=== PATIENT | female | born 1960 | race Caucasian/White ===

== ENCOUNTER 2017-03-05 15:00 | Emergency (ER) | payer OTHER ==
[~2017-03-05] VITALS: Ht 160 cm; Wt 88.5 kg
[2017-03-05 15:07] VITALS: TEMP 36.7; Ht 160 cm; Wt 88.5 kg
[2017-03-05] MEDS ORDERED: ADAL40KI INJ (15:16)
[2017-03-05] MEDS ORDERED: MULT-506 PO (15:17)
--- NOTE | 2017-03-05 15:27 | EMERGENCY ROOM VISIT NOTE ---
History Report prepared by Umu: Avril Bob Under the Supervision of: Ekta FuentesO. 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 She notes the majority of her pain is in the back of her calf. She currently rates her pain a 4/10 in severity. She notes bilaterally leg swelling. She was advised to come to the ED by her PCP for possible DVT. She notes increased tiredness. She had a gastric bypass five years ago. Pt denies headache, change in vision, fevers, chest pain , shortness of breath, nausea, vomiting, diarrhea, pain with urination, trauma, and melena. Patient denies diabetes, hypertension, hyperlipidemia, CAD, history of sudden at a young age, and smoking. Patient denies recent trips, history of immobilization or recent surgery, prior history of DVT, hemoptysis, history of malignancy, history of smoking, or control/estrogen use. Source of History: patient Onset: one week SCREW MACHINE OPERATOR Position: leg (right) Symptom Intensity: 4/10 Quality: other (swelling) Timing: constant Associated Symptoms: No fevers, No headache, No chest pain, No SOB, No nausea, No vomiting, No melena, No diarrhea, No urinary symptoms Note: She notes increased tiredness and bilateral leg swelling. She denies any trauma or vision changes. Review of Systems See HPI for pertinent positives & negatives. A total of 10 systems reviewed and were otherwise negative. Past Medical & Surgical Surgical Problems: (1) H/O gastric bypass Family History No pertinent family history obtained. Social History Smoking Status: Never Smoker Smokeless Tobacco Use: No Alcohol Use: none Drug Use: none Housing Status: lives with family Current/Historical Medications Scheduled Adalimumab (Humira Pen), Unknown Dose INJ every other week Multivitamin (Multivitamin), 1 TAB PO DAILY Allergies Coded Allergies: Morphine (Verified Allergy, Unknown, 03/05/17) N/V Uncoded Allergies: BEETS (Allergy, Unknown, 04/20/02) CODEINE (Generic Allergy) (Allergy, Unknown, Y, 10/23/04) CODEINE, MS N/V (Allergy, Unknown, 04/20/02) MORPHINE (Allergy, Unknown, 10/23/04) Physical Exam Vital Signs Date Time Temp Pulse Resp B/P (MAP) Pulse Ox O2 Delivery O2 Flow Rate FiO2 03/05/17 18:12 75 20 133/72 98 03/05/17 17:11 88 20 136/98 95 Room Air 03/05/17 15:07 36.7 102 17 158/95 99 Room Air Physical Exam GENERAL: Sitting up in bed, alert, well appearing, well nourished, no distress, non-toxic. Well dressed. EYE EXAM: normal conjunctiva. OROPHARYNX: no exudate, no erythema, lips, buccal mucosa, and tongue normal and mucous membranes are moist NECK: supple, no nuchal rigidity, no adenopathy, non-tender LUNGS: Clear to auscultation. Normal chest wall mechanics HEART: no murmurs, S1 normal and S2 normal ABDOMEN: abdomen soft, non-tender, normo-active bowel sounds, no masses, no rebound or guarding. BACK: Back is symmetrical on inspection and there is no deformity, no midline tenderness, no CVA tenderness. SKIN: no rashes and no bruising UPPER EXTREMITIES: upper extremities are grossly normal. LOWER EXTREMITIES: Full active and passive ROM to right hip, knee, ankle, and EHL. DPs 2/4. Gross sensation intact. Right calf larger than left. NEURO EXAM: Normal sensorium, cranial nerves II-XII grossly intact, normal speech, no gross weakness of arms, no gross weakness of legs. Medical Decision & Procedures ER Provider Diagnostic Interpretation: Radiology results as stated below per my review and the radiologist's interpretation: R VENOUS DOPP LOWER EXT UNILAT CLINICAL HISTORY: 56 years-old Female presenting with rle swelling and pain . TECHNIQUE: Real-time grayscale and color and spectral Doppler ultrasound imaging of the veins of the right lower extremity was performed. Compression and augmentation were also utilized. COMPARISON: None. FINDINGS: Right: Common femoral vein: Patent. Greater saphenous vein: Patent. Deep femoral vein: Patent. Femoral vein: Patent. Popliteal vein: Patent. Calf veins: Patent. Other: At the site of clinical concern in the right posterior lateral calf, no sonographic abnormality. IMPRESSION: No evidence of deep venous thrombosis. Electronically signed by: Emilio Banuelos M.D. 03/05/2017 5:32 PM Dictated Date/Time: 03/05/2017 5:30 PM Laboratory Results 03/05/17 15:47 Red Blood Count 4.42, Mean Corpuscular Volume 86.7, Mean Corpuscular Hemoglobin 29.4, Mean Corpuscular Hemoglobin Concent 33.9, Mean Platelet Volume 8.7, Neutrophils (%) (Auto) 61.8, Lymphocytes (%) (Auto) 30.7, Monocytes (%) (Auto) 5.9, Eosinophils (%) (Auto) 0.7, Basophils (%) (Auto) 0.7, Neutrophils # (Auto) 3.38, Lymphocytes # (Auto) 1.68, Monocytes # (Auto) 0.32, Eosinophils # (Auto) 0.04, Basophils # (Auto) 0.04 03/05/17 15:47 Test 03/05/17 15:47 White Blood Count 5.47 K/uL (4.8-10.8) Red Blood Count 4.42 M/uL (4.2-5.4) Hemoglobin 13.0 g/dL (12.0-16.0) Hematocrit 38.3 % (37-47) Mean Corpuscular Volume 86.7 fL (80-100) Mean Corpuscular Hemoglobin 29.4 pg (25-34) Mean Corpuscular Hemoglobin Concent 33.9 g/dl (32-36) Platelet Count 365 K/uL (130-400) Mean Platelet Volume 8.7 fL (7.4-10.4) Neutrophils (%) (Auto) 61.8 % Lymphocytes (%) (Auto) 30.7 % Monocytes (%) (Auto) 5.9 % Eosinophils (%) (Auto) 0.7 % Basophils (%) (Auto) 0.7 % Neutrophils # (Auto) 3.38 K/uL (1.4-6.5) Lymphocytes # (Auto) 1.68 K/uL (1.2-3.4) Monocytes # (Auto) 0.32 K/uL (0.11-0.59) Eosinophils # (Auto) 0.04 K/uL (0-0.5) Basophils # (Auto) 0.04 K/uL (0-0.2) RDW Standard Deviation 43.9 fL (36.4-46.3) RDW Coefficient of Variation 13.9 % (11.5-14.5) Immature Granulocyte % (Auto) 0.2 % Immature Granulocyte # (Auto) 0.01 K/uL (0.00-0.02) Prothrombin Time 9.8 SECONDS (9.0-12.0) Prothromb Time International Ratio 0.9 (0.9-1.1) Anion Gap 8.0 mmol/L (3-11) Est Creatinine Clear Calc Drug Dose 81.9 ml/min Estimated GFR () 95.6 Estimated GFR (Non- 82.5 BUN/Creatinine Ratio 19.7 (10-20) Calcium Level 9.0 mg/dl (8.5-10.1) Laboratory results per my review. ED Course ED COURSE: Vital signs were reviewed and showed hypertensive. The patients medical record was reviewed The above diagnostic studies were performed and reviewed. ED treatments and interventions as stated above. 1513: The patient was evaluated in room B8. A complete history and physical examination was performed. 1548 I reassessed the patient at this time. She is resting comfortably. 1805: Upon reevaluation, the patient is resting comfortably. I discussed my findings with the patient and she understands and agrees with the treatment plan. Based on the patients age, coexisting illnesses, exam and lab findings the decision to treat as an outpatient was made. The patient remained stable while under my care. The patient appeared well at the time of discharge. Medical Decision Differential diagnosis: Etiologies such as DVT, musculoskeletal, infection, joint effusion, trauma, lymphedema, idiopathic, CHF, as well as others were entertained. Patient is a 48-year-old female who presents to ER complaining of right calf pain. This has been worsening over the past week. No trauma. She has no other complaints at this time. She is referred in by her PCP for a DVT study. CBC all BMP and INR was unremarkable. Duplex of the right lower extremity was unremarkable. She is completely neurovascularly intact. No signs of septic joint. She was updated bedside. Nothing to suggest a fracture. Majority of her pain is in her right calf. She was discharged follow-up with PCP. Discussed with Pt concerning signs and symptoms to watch out for. Pt was instructed to follow up with their PCP and discussed with the patient their option to return to the ED at anytime for persistent or worsening symptoms. The appropriate anticipatory guidance and out-patient management, including indications for return to the emergency department, were explained at length to the patient and understood. Medication Reconcilliation Current Medication List: was personally reviewed by me Blood Pressure Screening Patient's blood pressure: Elevated blood pressure Blood pressure disposition: Elevated BP felt to be situational Impression Primary Impression: Right calf pain Scribe Attestation The scribe's documentation has been prepared under my direction and personally reviewed by me in its entirety. I confirm that the note above accurately reflects all work, treatment, procedures, and medical decision making performed by me. Departure Information Dispostion Home / Self-Care Referrals Rosanna Santos M.D. (PCP) Forms HOME CARE DOCUMENTATION FORM, IMPORTANT VISIT INFORMATION Patient Instructions ED Leg Swelling Unilateral, My [facility] Additional Instructions Please follow up with your primary care doctor with in the next 24 hours. Any worsening of your symptoms, please return to the ED immediately. This includes any fevers greater than 100.4, worsening pain, chest pain, shortness breath, persistent nausea, vomiting, unable to eat or drink, or any other concerning signs or symptoms from your standpoint. Please take Tylenol or Motrin as needed for pain.
[2017-03-05 15:57] LABS: BASO % 0.7 %; BASO ABS # 0.04 K/uL (0-0.2); EOS % 0.7 %; EOS ABS # 0.04 K/uL (0-0.5); HEMATOCRIT 38.3 % (37-47); IG# 0.01 K/uL (0.00-0.02); LYMPH % 30.7 %; LYMPH ABS # 1.68 K/uL (1.2-3.4); MEAN CELL VOLUME 86.7 fL (80-100); MEAN CORPUSCULAR HEMOGLOBIN 29.4 pg (25-34); MEAN CORPUSCULAR HGB CONC 33.9 g/dl (32-36); MEAN PLATELET VOLUME 8.7 fL (7.4-10.4); MONO % 5.9 %; MONO ABS # 0.32 K/uL (0.11-0.59); NEUT % 61.8 %; NEUT ABS # 3.38 K/uL (1.4-6.5); PLATELET COUNT 365 K/uL (130-400); RED CELL DISTRIBUTION WIDTH CV 13.9 % (11.5-14.5); RED CELL DISTRIBUTION WIDTH SD 43.9 fL (36.4-46.3); WHITE BLOOD COUNT 5.47 K/uL (4.8-10.8)
[2017-03-05 16:07] LABS: INR 0.9 (0.9-1.1)
[2017-03-05 16:13] LABS: CREATININE 0.79 mg/dl (0.60-1.20); POTASSIUM 4.3 mmol/L (3.5-5.1)
--- NOTE | 2017-03-05 17:34 | DIAGNOSTIC IMAGING REPORT ---
R VENOUS DOPP LOWER EXT UNILAT CLINICAL HISTORY: 56 years-old Female presenting with rle swelling and pain . TECHNIQUE: Real-time grayscale and color and spectral Doppler ultrasound imaging of the veins of the right lower extremity was performed. Compression and augmentation were also utilized. COMPARISON: None. FINDINGS: Right: Common femoral vein: Patent. Greater saphenous vein: Patent. Deep femoral vein: Patent. Femoral vein: Patent. Popliteal vein: Patent. Calf veins: Patent. Other: At the site of clinical concern in the right posterior lateral calf, no sonographic abnormality. IMPRESSION: No evidence of deep venous thrombosis. Electronically signed by: Emilio Banuelos M.D. 03/05/2017 5:32 PM Dictated Date/Time: 03/05/2017 5:30 PM
[2017-03-05 18:12] VITALS: BP 133/72; PULSE 75; O2SAT 98
== END 2017-03-05 18:14 | disposition home or self-care (01) ==
LOC: C.EDB 15:03
DX: M79.661 Pain in right lower leg (principal); Z98.84 Bariatric surgery status

== ENCOUNTER 2018-06-08 05:01 | Inpatient (IN) ==
--- NOTE | 2018-05-12 14:49 | PAT Medication Instructions ---
Medication Instructions Date of Service May 12, 2018 Home Medications Ca carb-D3-mag gt-irq-wpzb-Zn 1 tab PO DAILY adalimumab [Humira Pen] 1 dose SUBCUT UD pediatric proouxfd-pnew-ffu 2 tab PO DAILY ranitidine HCl 150 mg PO DAILY PRN ASK your prescriber and surgeon adalimumab [Humira Pen] 1 dose SUBCUT UD DO NOT take the morning of surgery Ca carb-D3-mag ow-atg-utej-Zn 1 tab PO DAILY pediatric msrmeiju-jefx-oob 2 tab PO DAILY ranitidine HCl 150 mg PO DAILY PRN Other Notes If you have any questions please call us at [phone] or [phone] or [phone] or [phone]
--- NOTE | 2018-05-13 08:59 | History & Physical Report ---
Date of Service May 13, 2018 Date of Surgery: 06-08-18 Assessment & Plan (1) Tricompartment osteoarthritis of right knee: Risks and benefits of procedure discussed in detail today, patient would like to proceed with a right TKA @ [facility] as scheduled. will obtain medical clearance prior to surgery as well as obtain PATs at [facility]. She will discuss with her GI surgeon if ok take ASA 81mg po bid x 1 month post op or if they would prefer Lovenox has h/o gastric bypass, f/u 2 weeks post op for routine post- operative care and xray, sooner if having any problems. will make arrangements for HHPT at the time of discharge. History of Present Illness Chief Complaint: right knee pain Primary Care Provider: Rosanna Santos MD Ms Schultz is a 57 year old female who is here for a follow up of right knee pain, presents for pre-op evaluation prior to Right Total knee replacement. She presents with pain and swelling on the right side. Patient states that she has been using Pennsaid without any results. The symptoms occur intermittently. currently the patient states that the symptoms are moderate-severe. The pain is described as aching and sometimes sharp. The symptoms occur intermittently. The patient is experiencing pain in the following location: anterior aspect on the right side. She rates her current pain as 4/10, worst is 7/10. The symptoms are aggravated by daily activities and repetitive activities, walking and stairs. Daxa states that the symptoms are relieved by no specific activity. The patient has had a previous MRI. Pt. has used topical Pennsiad. Due to Gastic Bypass she is limited on oral NSAID's. Patient states that she is unable to take the prescribed Meloxicam due to having gastric bypass surgery. Allergies Allergy/AdvReac Type Severity Reaction Status Date / Time morphine Allergy Mild SICK TO Verified 05/06/18 10:58 STOMACH BEETS Allergy Mild Rash Uncoded 05/06/18 10:58 CODEINE (Generic Allergy) Allergy Mild SICK TO Uncoded 05/06/18 10:58 STOMACH Home Medications Home Medications Medication Instructions Recorded Confirmed Type Ca carb-D3-mag ir-lpf-lylh-Zn 1 tab PO DAILY 05/06/18 05/06/18 History [Caltrate + D3 Plus Minerals] adalimumab [Humira Pen] 1 dose SUBCUT UD 05/06/18 05/06/18 History pediatric ucxebxel-iqrj-bnd 2 tab PO DAILY 05/06/18 05/06/18 History [Flintstones Complete (iron)] ranitidine HCl 150 mg PO DAILY PRN 05/06/18 05/06/18 History Past Med/Surg History Medical History Anemia HX Colitis GERD (gastroesophageal reflux disease) Hypertension HX- NO MEDS Osteoarthritis Psoriasis Uterine fibroid HX Surgical History History of adenoidectomy History of cholecystectomy History of colonoscopy History of esophagogastroduodenoscopy (EGD) History of gastric bypass History of hysterectomy History of left knee surgery DEBRIDEMENT AND UNI-SPACER 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) History of tonsillectomy History of tooth extraction Nausea and vomiting after administration of anesthetic agent Family History Grandfather (Maternal) Family history of diabetes mellitus Grandfather (Paternal) Family history of diabetes mellitus Social History Preferred Language: Montserratian Communication Ability: Effective Operations Administrator Required: No Beliefs That Will Affect Care: None Current Living Situation: Spouse Other Information That Helps Us Care for You: No Feels Safe at Home: Yes Safety Concerns: Feels Safe At This Time Smoking Status: Never smoker Hx Alcohol Use: Yes Hx Substance Use: No Review of Systems All systems reviewed & are unremarkable except as noted in HPI & below Constitutional: no fever, no chills and no sweats Respiratory: no cough and no dyspnea Cardiovascular: no chest pain, no dyspnea and no orthopnea Gastrointestinal: no nausea and no vomiting Musculoskeletal: as per Subjective / HPI Physical Exam Vital Signs (Past 24 Hours): Ht: 5ft 3in Wt: 81.6kg BP: 122/82 Pulse: 72 Constitutional: WD/WN, vitals as above no acute distress Respiratory: normal respiratory effort, lungs clear to auscultation no respiratory distress and no labored breathing Cardiovascular: RRR, no murmur, no edema Gastrointestinal (Abdomen): normal bowel sounds, soft, nontender, no hepatosplenomegaly Musculoskeletal: Right Knee Exam Ambulates with a limp, overall varus Alignment, no Atrophy or Ecchymosis, mild Effusion, Maximum tenderness Medial joint line and diffuse, negative patellar Apprehension , mild Crepitation with motion, Patella position Neutral, Brynn's Negative, Star's - lateral positive, Star's - medial positive, Posterior drawer- Negative, Anterior drawer Negative, Valgus stress Negative, Varus stress Negative, no Extensor lag, Pain with Active range of motion, also passive painful ROM, Range of motion 0/3/110. No pain with active/passive ROM of ankle. Lower Extremity Strength normal. Lower Extremity Neuro-vascular is normal Results & Data Diagnostic Findings Right knee xray from January 2018 showing advanced degenerative changes to the right knee, narrowing of the medial compartment and patello-femoral joint with patellar spurring noted, findings showing joint space narrowing of the medial compartment and patello-femoral joint, osteophyte formation and subchondral sclerosis noted. overall varus alignment. no acute bony pathology noted.
--- NOTE | 2018-05-13 11:36 | Anesthesiology Consultation ---
Date of Service May 13, 2018 Assessment & Plan (1) Encounter for pre-operative examination: - Patient anxious RE: surgery/anesthesia; requests deeper sedation/"does not want to hear tools" during surgery if possible Chart Review Chart Review: Acceptable Risk for Surgery and Patient seen in Pre Admission Testing Teaching & Discussion Pre-Anesthesia Teaching/Discussion Notes: Instructed NPO after midnight before surgery,except medications with 15 cc of water. Medication instructions provided according to the PAT guidelines. History Surgery Operation Date: 06/08/18 10:20 Proposed Procedures p Right Total Knee Arthroplasty - Daniel Blackburn DO Height/Weight Height: 5 ft 3.5 in Weight: 83.4 kg Allergies Allergy/AdvReac Type Severity Reaction Status Date / Time morphine Allergy Mild SICK TO Verified 05/06/18 10:58 STOMACH BEETS Allergy Mild Rash Uncoded 05/06/18 10:58 CODEINE (Generic Allergy) Allergy Mild SICK TO Uncoded 05/06/18 10:58 STOMACH Medications Home Medications Medication Instructions Recorded Confirmed Last Taken Ca carb-D3-mag oi-bmh-porq-Zn 1 tab PO DAILY 05/06/18 05/06/18 Unknown [Caltrate + D3 Plus Minerals] adalimumab [Humira Pen] 1 dose SUBCUT UD 05/06/18 05/06/18 Unknown pediatric fstekhru-mane-rjt 2 tab PO DAILY 05/06/18 05/06/18 Unknown [Flintstones Complete (iron)] ranitidine HCl 150 mg PO DAILY PRN 05/06/18 05/06/18 Unknown Past Medical History Medical History Anemia HX Colitis NO FLARES X YEARS GERD (gastroesophageal reflux disease) CONTROLLED Hypertension HX OF MEDS DISCONTINUED AFTER GASTRIC BYPASS Osteoarthritis Psoriasis ON HUMIRA Uterine fibroid HX Past Family History Family History Grandfather (Maternal) Family history of diabetes mellitus Grandfather (Paternal) Family history of diabetes mellitus Past Surgical History Surgical History History of adenoidectomy History of cholecystectomy History of colonoscopy History of esophagogastroduodenoscopy (EGD) History of gastric bypass 2012 S/P NET 60 POUND WEIGHT LOSS History of hysterectomy History of left knee surgery DEBRIDEMENT AND UNI-SPACER 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) History of tonsillectomy History of tooth extraction Nausea and vomiting after administration of anesthetic agent Past Anesthesia History No Hx of Anesthesia Complications (EXCEPT PONV) and No Family Hx of Anesthesia Complications History of PONV Yes Motion Sickness Screening History of Motion Sickness: Yes (REMOTELY) Social History Smoking Status: Never smoker Do You Dip or Chew Tobacco: No Hx Alcohol Use: Yes Alcohol type: wine alcohol intake frequency: holidays/special occasions only Hx Substance Use: No substance use type: does not use Exercise / Class Metabolic Activity II 4-5 Yardwork/Stairs/Walk up hill Review of Systems Patient denies chest pain, shortness of breath, dyspnea on exertion, joint pain, reflux, cough, wheezing, palpitations. Physical Exam Vital Signs VITALS BP 140/81 P 71 TEMP 97.8 SP02 98%RA RESP 18 PHYSICAL Full neck and c-spine range of motion. Full TMJ range of motion. TMD 3 finger breaths Mallampati Score 2 Dentition: upper front capped teeth; several missing sides/molars Lungs: clear throughout to auscultation Cardiac: regular rate and rhythm, no murmurs noted Spine: normal Carotid arteries: negative bruit Extremities: no edema Testing Electrocardiogram Date: 05/13/18 NSR at 67bpm. NS STA. Chest X-Ray Date: 05/13/18 Findings: + NAD Laboratory Results 05/13/18 11:59 05/13/18 11:59 Blood Type A Positive 05/13/18 11:59 Antibody Screen NEGATIVE 05/13/18 11:59 PT 9.8 Seconds (9.0-12.0) 05/13/18 11:59 INR 1.0 (0.9-1.1) 05/13/18 11:59 APTT 26.5 Seconds (21.0-31.0) 05/13/18 11:59 Hemoglobin A1c 5.8 % (4.5-5.6) H 05/13/18 11:59 Urine Color Yellow 05/13/18 11:59 Urine Appearance Clear (Clear) 05/13/18 11:59 Urine pH 7.5 (4.5-7.5) 05/13/18 11:59 Ur Specific [place] 1.009 (1.000-1.030) 05/13/18 11:59 Urine Protein Negative (Negative) 05/13/18 11:59 Urine Glucose (UA) Negative (Negative) 05/13/18 11:59 Urine Ketones Negative (Negative) 05/13/18 11:59 Urine Nitrite Negative (Negative) 05/13/18 11:59 Ur Leukocyte Esterase Negative (Negative) 05/13/18 11:59 05/13/18 11:59 Urine Culture - Final Urine,Clean Catch No growth - less than 1,000 colonies/mL.
--- NOTE | 2018-05-13 12:36 | XRay Report ---
XR chest Pre-admission PA/Lat HISTORY: 57 years-old Female pat preoperative exam. No acute chest complaints COMPARISON: None available TECHNIQUE: PA and lateral views of the chest FINDINGS: Cardiomediastinal and hilar silhouettes are within normal limits. No pneumothorax, pleural effusion, focal airspace consolidation or overt pulmonary edema. Degenerative changes of the shoulders and spin e. Cholecystectomy. IMPRESSION: No acute process. The above report was generated using voice recognition software. It may contain grammatical, syntax o r spelling errors. Electronically signed by: Triston Muñoz M.D. 05/13/2018 12:34 PM
[2018-05-13 14:24] LABS: Basophils # (auto) 0.01 K/uL (0-0.2); Basophils % (auto) 0.2 %; Eosinophils # (auto) 0.03 K/uL (0-0.5); Eosinophils % (auto) 0.6 %; Hematocrit (blood only) 39.3 % (37-47); Hemoglobin 12.9 g/dL (12.0-16.0); Lymphocytes # (auto) 1.81 K/uL (1.2-3.4); Lymphocytes % (auto) 38.3 %; Mean Corpuscular Hgb Conc 32.8 g/dL (32-36); Mean Corpuscular Volume 88.7 fL (80-100); Mean Platelet Volume 9.2 fL (7.4-10.4); Monocytes # (auto) 0.37 K/uL (0.11-0.59); Monocytes % (auto) 7.8 %; Neutrophils # (auto) 2.51 K/uL (1.4-6.5); Neutrophils % (auto) 53.1 %; Platelet Count 375 K/uL (130-400); RDW Coefficient of Variation 14.2 % (11.5-14.5); RDW Standard Deviation 46.3 fL (36.4-46.3); Red Blood Count 4.43 M/uL (4.2-5.4); White Blood Count 4.73 K/uL (4.8-10.8)
[2018-05-13 14:26] LABS: Albumin Level 3.5 gm/dl (3.4-5.0); BUN Creatinine Ratio 12.6 (10-20); Calcium 9.2 mg/dl (8.5-10.1); Creatinine Clr Calc Pharmacy 85.8 ml/min; Est GFR (African American) 104.5; Est GFR (Non-African American) 90.1; Potassium 4.6 mmol/L (3.5-5.1)
[2018-05-13 14:28] LABS: Appearance Urine Clear (Clear); Bilirubin Urine Negative (Negative); Blood Urine Negative (Negative); Color Urine Yellow; Glucose Urine UA Negative (Negative); Ketones Urine Negative (Negative); Leukocyte Esterase Urine Negative (Negative); Nitrite Urine Negative (Negative); Protein Urine Negative (Negative); Specific Gravity Urine 1.009 (1.000-1.030); Urobilinogen Urine Negative (Negative); pH Urine 7.5 (4.5-7.5)
[2018-05-13 14:35] LABS: Partial Thromboplastin Time 26.5 Seconds (21.0-31.0); Prothrombin Time 9.8 Seconds (9.0-12.0)
[2018-05-13 15:07] LABS: Estimated Average Glucose 120 mg/dl; Hemoglobin A1C 5.8 % (4.5-5.6)
[2018-06-08] MEDS ORDERED: dexAMETHasone 4 MG TAB PO SCH (06:00)
[2018-06-08] MEDS ORDERED: TRANEXAMIC ACID 1,000 MG **IV Pre-op IV SCH (06:00)
[2018-06-08] MEDS ORDERED: ROPIVACAINE 0.5% HCL/PF 150 MG, BUPIVACAINE 0.5% MPF 30 ML, EPINEPHrine 30MG/30ML (OR U... INFIL SCH (06:00)
[2018-06-08] MEDS ORDERED: CeleBREX 200 MG CAP PO SCH (06:00)
[2018-06-08] MEDS ORDERED: GABAPENTIN 300 MG x 2 PO SCH (06:00)
[2018-06-08] MEDS ORDERED: ACETAMINOPHEN 500 MG TAB PO SCH (06:00)
[2018-06-08] MEDS ORDERED: CEFAZOLIN 2000MG 2,000 MG/15 ML SYR IV SCH (06:00)
[2018-06-08] MEDS ORDERED: FAMOTIDINE 20 MG TAB PO SCH (06:00)
[2018-06-08] MEDS ORDERED: LR 500ML BOLUS, THEN 15ML/HR IV SCH (06:00)
[2018-06-08] MEDS ORDERED: ROPIVACAINE 0.5% 5 MG/ML 30 ML VIAL ONE (06:25)
[2018-06-08] MEDS ORDERED: BUPIVACAINE 0.5 % 5 MG/1 ML PF 10ML VIAL ONE (06:25)
[2018-06-08] MEDS ORDERED: TRANEXAMIC ACID 1,000 MG **IV Intra-op IV SCH (06:30)
[2018-06-08] MEDS ORDERED: POVIDONE-IODINE OP SOLN 30 ML BTL ONE (06:40)
[2018-06-08] MEDS ORDERED: BACITRACIN INJ 50,000 UNIT VIAL ONE (06:40)
[2018-06-08] MEDS ORDERED: ORTHO JOINT ANESTHETIC ONE (06:40)
[2018-06-08] MEDS ORDERED: MIDAZOLAM HCL 1 MG/ML 2ML VIAL ONE ×2 (06:41→07:00)
[2018-06-08] MEDS ORDERED: fentaNYL citrate 100 MCG/2 ML VIAL ONE (06:42)
[2018-06-08] MEDS ORDERED: ePHEDrine sulfate 50 MG/ML AMP IV PRN (06:43)
[2018-06-08] MEDS ORDERED: HYDROmorphone INJ 1 MG/ML SYRINGE IV PRN (06:43)
[2018-06-08] MEDS ORDERED: ATROPINE SULFATE 0.1 MG/ML 10ML SYR IV PRN (06:43)
--- NOTE | 2018-06-08 07:04 | History & Physical Bridge Note ---
Date of Service June 08, 2018 History & Physical Bridge Note I have examined the patient, reviewed the History & Physical and in the interval since the performance of the History & Physical I have noted the following changes of clinical significance: no changes noted
[2018-06-08] MEDS ORDERED: KETAMINE HCL INJ 50 MG/ML 10 ML VIAL ONE (07:31)
[2018-06-08] MEDS ORDERED: PROPOFOL IV EMULSION 10 MG/ML 20 ML VIAL IV ONE ×2 (07:35)
[2018-06-08] MEDS ORDERED: LIDOCAINE HCL 2% 2 ML VIAL/AMP(20MG/ML) INFIL ONE (07:35)
[2018-06-08] MEDS ORDERED: ONDANSETRON INJ 2 MG/ML 2 ML VIAL ONE (07:35)
--- NOTE | 2018-06-08 08:17 | Operative Report ---
Post Operative Report Pre & Post Diagnosis Operation Date: 06/08/18 07:00 Pre-Op Diagnosis: Right Knee Osteoarthritis Post-Op Diagnosis: Right Knee Osteoarthritis Procedure Operation Date: 06/08/18 07:00 Actual Procedures p Right Total Knee Arthroplasty(Right) utilizing [employer] journey 2 patient matched total knee arthroplasty size 5 femur 3 tibia 9 polyethylene 29 oval patella- Daniel Blackburn DO Surgeon Daniel Blackburn DO Generator Rebuilder Jorge Luis EPSTEIN Estimated Blood Loss 5 Findings Consistent with Post-Op Diagnosis Patient presents with severe end-stage tricompartmental degenerative joint disease with subchondral sclerosis marginal osteophytes eburnated bone [id number] varus alignment with serial ligamentous laxity due to bone loss of medial compartment patient has a 15 degree varus alignment and 5 degree flexion contracture preoperatively patient's failed attempts at conservative management presents for right total knee arthroplasty Specimens Bone and cartilage Drains Medium bore Hemovac Complications none Disposition Accompanied Patient To Recovery: No Disposition: Recovery Room Indications Patient presents ongoing planes of pain attributed to her right knee no response to conservative management including physical therapy corticosteroid injections [place] supplementation bracing activity modification relative rest she presents after failed all attempts at conservative management presents for right total knee arthroplasty Description of Procedure After proper prepping and draping of the Right lower extremity anterior midline incision was made over the region of the extensor extensor mechanism after meticulous hemostasis was obtained and maintained in subcutaneous tissues a medial parapatellar incision was made The patella was subluxed lateralward the medial lateral gutter were cleaned from any hypertrophic synovitis and scar tissue of the distal femoral block was placed and the distal femoral osteotomy cut was made subsequently the chamfers anterior and posterior osteotomy cuts were made utilizing the 4-in-1 block the tibia was subsequently subluxed anteriorward medial and ateral meniscal remnants were excised in their entirety remnants of the anterior and posterior cruciate ligaments were excised in their entirety excellent exposure of the proximal tibia was obtained the tibial osteo abdulaziz guide was placed on the proximal tibial osteotomy cut was made once again the knee was irrigated with copious amounts of sterile saline solution the patella was subsequently everted lateralward thickened scar tissue around the patella was removed the patella was subsequently cut utilizing a freehand technique and was drilled prepared for final preparation and placement of patella socially flexion-extension gaps were checked and the equal and symmetric trials were placed to the appropriate femoral and tibial trials with poly-spacer being placed for equal flexion and extension gaps and full range of motion including extension to 0 and flexion to 140 the trial components after having been taken to recovery range of motion was subsequently removed meticulous hemostasis was obtained and maintained subsequently a knee block injection of joint cocktail including ropivacaine 0.5% 150 mg. Bupivacaine 0.5% epinephrine 1-200,030 mL's toradol 30 mg dexamethasone 4 mg ketamine 10 mg clonidine 100 micrograms normal saline solution 30 mg was infiltrated into the soft tissues of the posterior knee medial lateral gutters and periosteal synovium special attention was paid to protect neurovascular structures at all times subsequently trial components having been removed the knee was irrigated with sterile saline solution. debris was removed the proximal tibia was subsequently prepared and was made ready for the placement of the tibial component tibial component was also cemented and tamped into position the femoral component was subsequently placed and cemented in the position the patellar component was subsequently cemented in position because hemostasis once again obtained and maintained wound having been thoroughly irrigated with debridement and debridement lavage was performed as well as a medial parapatellar incision closed with #1 Vicryl in interrupted fashion subcutaneous was closed with #2 Vicryl skin was closed with skin clips. PA-C was necessary for prepping and drapping as well as wound closure of deep fascia Sub cutaneous tissue and skin and was necessary for the case. A sterile compressive dressing was placed patient was taken to recovery in stable condition of report dictated by Alexey I attest to the content of the Intraoperative Record and any orders documented therein. Any exceptions are noted below. I attest to the content of the Intraoperative Record and any orders documented therein. Any exceptions are noted below.
--- NOTE | 2018-06-08 09:43 | XRay Report ---
XR knee RT 2V routine HISTORY: 58 years-old Female Surgical Post Op right knee total joint arthroplasty. History of degene rative joint disease COMPARISON: None available TECHNIQUE: 2 views of the right knee FINDINGS: Right knee total joint arthroplasty with patellar resurfacing. Alignment is satisfactory without acut e fracture or retained foreign body. Expected postsurgical soft tissue swelling with deep tissue air. Surgical drainage catheter noted. IMPRESSION: Right knee total joint arthroplasty and patella resurfacing with satisfactory alignment. The above report was generated using voice recognition software. It may contain grammatical, syntax o r spelling errors. Electronically signed by: Triston Muñoz M.D. 06/08/2018 9:42 AM
[2018-06-08] MEDS ORDERED: NALOXONE HCL 0.4 MG/1 ML VIAL/CARP IV PRN (10:33)
[2018-06-08] MEDS ORDERED: ALUMINUM/MAGNESIUM SUSP 30 ML UDC PO PRN (10:33)
[2018-06-08] MEDS ORDERED: BISACODYL 10 MG SUPP PR PRN (10:33)
[2018-06-08] MEDS ORDERED: METOCLOPRAMIDE HCL INJ 5 MG/ML 2 ML VIAL IV PRN (10:33)
[2018-06-08] MEDS ORDERED: HYDROmorphone INJ 0.5 MG/0.5 ML SYR IV PRN (10:33)
[2018-06-08] MEDS ORDERED: ONDANSETRON INJ 2 MG/ML 2 ML VIAL IV PRN (10:33)
[2018-06-08] MEDS ORDERED: MULTIVITAMIN TAB PO SCH (10:33)
[2018-06-08] MEDS ORDERED: MAGNESIUM HYDROXIDE SUSP 30 ML UDC PO PRN (10:33)
[2018-06-08] MEDS: SODIUM CHLORIDE 0.9% 1000ML 1,000 ML IV SCH ×2 (11:20→20:21)
[2018-06-08] MEDS: KETOROLAC TROMETHAMINE 15 MG/ML VIAL IV SCH ×3 (11:27→23:17)
[2018-06-08] MEDS: ACETAMINOPHEN 500 MG TAB PO SCH ×2 (13:25→21:06)
[2018-06-08] MEDS: DOCUSATE SODIUM 100 MG CAP PO SCH ×2 (13:27→20:23)
--- NOTE | 2018-06-08 14:03 | Anesthesiology Progress Note ---
Date of Service June 08, 2018 Anesthesia Post Procedure Vital Signs Vital Signs: Temp Pulse Pulse Pulse Pulse Resp BP 06/08/18 13:16 90 18 148/87 H 06/08/18 12:30 90 18 130/79 06/08/18 10:57 102 H 18 134/79 06/08/18 10:15 36.6 C 104 H 16 133/78 06/08/18 10:00 88 12 134/77 06/08/18 09:45 36.5 C 90 12 132/73 06/08/18 09:35 36.5 C 90 10 L 139/79 06/08/18 09:25 95 H 11 L 137/77 06/08/18 09:15 90 11 L 126/69 06/08/18 09:05 99 H 13 117/68 06/08/18 08:57 36.5 C 112 H 17 117/65 06/08/18 05:40 36.8 C 94 H 18 174/95 H Pulse Ox 06/08/18 13:16 100 06/08/18 12:30 100 06/08/18 10:57 100 06/08/18 10:15 100 06/08/18 10:00 100 06/08/18 09:45 100 06/08/18 09:35 100 06/08/18 09:25 100 06/08/18 09:15 100 06/08/18 09:05 100 06/08/18 08:57 100 06/08/18 05:40 99 Pain Intensity Right Knee: Pain Intensity: 0 Notes Mental Status: alert / awake / arousable Patient Amnestic to Procedure: Yes Nausea / Vomiting: adequately controlled Pain: adequately controlled Airway Patency, RR, SpO2: stable & adequate BP & HR: stable & adequate Hydration State: stable & adequate Anesthetic Complications: no major complications apparent and Pt Satisfied with anesthetic care
[2018-06-08] MEDS: CEFAZOLIN 2000MG 2,000 MG/15 ML SYR IV SCH ×2 (14:09→22:36)
[2018-06-08] MEDS: SENNA 8.6 MG TAB PO SCH (20:22)
[2018-06-08] MEDS: ASPIRIN 81 MG ECTAB PO SCH (20:23)
[2018-06-09] MEDS: KETOROLAC TROMETHAMINE 15 MG/ML VIAL IV SCH (05:15)
[2018-06-09] MEDS: ACETAMINOPHEN 500 MG TAB PO SCH ×3 (05:15→21:25)
[2018-06-09 05:46] LABS: Hematocrit (blood only) 30.8 % (37-47); Hemoglobin 10.3 g/dL (12.0-16.0); Mean Corpuscular Hgb Conc 33.4 g/dL (32-36); Mean Corpuscular Volume 86.8 fL (80-100); Mean Platelet Volume 8.8 fL (7.4-10.4); Platelet Count 251 K/uL (130-400); RDW Coefficient of Variation 14.1 % (11.5-14.5); RDW Standard Deviation 44.7 fL (36.4-46.3); Red Blood Count 3.55 M/uL (4.2-5.4); White Blood Count 6.56 K/uL (4.8-10.8)
[2018-06-09 06:13] LABS: BUN Creatinine Ratio 13.8 (10-20); Calcium 8.2 mg/dl (8.5-10.1); Creatinine Clr Calc Pharmacy 91.8 ml/min; Est GFR (African American) 110.2; Est GFR (Non-African American) 95.1; Potassium 3.6 mmol/L (3.5-5.1)
--- NOTE | 2018-06-09 06:50 | Orthopedic Progress Note ---
Date of Service June 09, 2018 Assessment & Plan (1) Status post total right knee replacement: POD #1 s/p Right TKA pt/ot dvt proph with [facility]/SCD/ASA plan for d/c home with home health PT when stable, will recheck after PT today. Subjective POD #1 s/p Right TKA denies CP/SOB denies Fever/Chills pain currently 04/17 Physical Exam Vital Signs (Past 24 Hours): Last Vital Signs Temp 36.6 C 06/09/18 04:05 Pulse 76 06/09/18 04:05 Resp 14 06/09/18 04:05 BP 147/81 H 06/09/18 04:05 Pulse Ox 97 06/09/18 04:05 Constitutional: WD/WN, vitals as above no acute distress Musculoskeletal: Right Knee: NVDI, calf SNT, negative wicho sign. DP palpable, able to wiggle toes/ankle movement without difficulty. dressing clean dry and intact. Vital Signs Temp 36.6 C 06/09/18 04:05 Pulse 76 06/09/18 04:05 Resp 14 06/09/18 04:05 BP 147/81 H 06/09/18 04:05 Pulse Ox 97 06/09/18 04:05 Intake & Output 06/08/18 06/08/18 06/09/18 06:59 18:59 06:59 Intake Total 2268.333 / 4394.99 9 2126.666 / 4394.99 9 Output Total 495 / 1995 1501 / 1996 Balance 1773.333 / 2398.99 9 625.666 / 2398.999 Weight 84.935 kg Intake: IV 1528.333 / 3054.99 9 1526.666 / 3054.99 9 Lr 1,000 ml @ 15 mls/hr IV . 1000 / 1000 Q24H [facility] Rx#:[id number] Nss 1000ML 1,0 00 ml @ 100 mls/ 308.333 / 0102.785 5265.666 / 1834.99 9 hr IV .Q10H SC H Rx#:[id number] Cyklokapron 1, 000 mg In Sodium 220 / 220 Chloride 100 m l @ 660 mls/hr IV 0630 [facility] Rx#:[id number] IV Perioperative 500 / 500 Oral 240 / 840 600 / 840 Output: Urine 400 / 1500 1100 / 1500 Emesis 100 / 100 Estimated Blood Loss 5 / 5 Drain Output 90 / 390 300 / 390 Right Knee 90 / 390 300 / 390 # Bowel Movement s Other: # Emeses 1 Results & Data Laboratory Results Laboratory Results WBC 6.56 K/uL (4.8-10.8) 06/09/18 05:15 RBC 3.55 M/uL (4.2-5.4) L 06/09/18 05:15 Hgb 10.3 g/dL (12.0-16.0) L 06/09/18 05:15 Hct 30.8 % (37-47) L 06/09/18 05:15 MCV 86.8 fL (80-100) 06/09/18 05:15 MCH 29.0 pg (25-34) 06/09/18 05:15 MCHC 33.4 g/dL (32-36) 06/09/18 05:15 RDW Std Deviation 44.7 fL (36.4-46.3) 06/09/18 05:15 RDW Coeff of Brent 14.1 % (11.5-14.5) 06/09/18 05:15 Plt Count 251 K/uL (130-400) 06/09/18 05:15 MPV 8.8 fL (7.4-10.4) 06/09/18 05:15 Immature Gran % (Auto) 0.0 % 05/13/18 11:59 Neut % (Auto) 53.1 % 05/13/18 11:59 Lymph % (Auto) 38.3 % 05/13/18 11:59 [place] % (Auto) 7.8 % 05/13/18 11:59 Eos % (Auto) 0.6 % 05/13/18 11:59 Baso % (Auto) 0.2 % 05/13/18 11:59 Immature Gran # (Auto) 0.00 K/uL (0.00-0.02) 05/13/18 11:59 Neut # (Auto) 2.51 K/uL (1.4-6.5) 05/13/18 11:59 Lymph # (Auto) 1.81 K/uL (1.2-3.4) 05/13/18 11:59 [place] # (Auto) 0.37 K/uL (0.11-0.59) 05/13/18 11:59 Eos # (Auto) 0.03 K/uL (0-0.5) 05/13/18 11:59 Baso # (Auto) 0.01 K/uL (0-0.2) 05/13/18 11:59 PT 9.8 Seconds (9.0-12.0) 05/13/18 11:59 INR 1.0 (0.9-1.1) 05/13/18 11:59 APTT 26.5 Seconds (21.0-31.0) 05/13/18 11:59 PTT Ratio 1.0 05/13/18 11:59 Sodium 143 mmol/L (136-145) 06/09/18 05:15 Potassium 3.6 mmol/L (3.5-5.1) 06/09/18 05:15 Chloride 113 mmol/L (98-107) H 06/09/18 05:15 Carbon Dioxide 25 mmol/L (21-32) 06/09/18 05:15 Anion Gap 5.0 (3-11) 06/09/18 05:15 BUN 9 mg/dl (7-18) 06/09/18 05:15 Creatinine 0.68 mg/dl (0.6-1.2) 06/09/18 05:15 Est Cr Clr Drug Dosing 91.8 ml/min 06/09/18 05:15 Est GFR ( Amer) 110.2 06/09/18 05:15 Est GFR (Non-Af Amer) 95.1 06/09/18 05:15 BUN/Creatinine Ratio 13.8 (10-20) 06/09/18 05:15 Glucose 112 mg/dl (70-99) H 06/09/18 05:15 Estimat Average Glucose 120 mg/dl 05/13/18 11:59 Hemoglobin A1c 5.8 % (4.5-5.6) H 05/13/18 11:59 Calcium 8.2 mg/dl (8.5-10.1) L 06/09/18 05:15 Albumin 3.5 gm/dl (3.4-5.0) 05/13/18 11:59 Urine Color Yellow 05/13/18 11:59 Urine Appearance Clear (Clear) 05/13/18 11:59 Urine pH 7.5 (4.5-7.5) 05/13/18 11:59 Ur Specific [place] 1.009 (1.000-1.030) 05/13/18 11:59 Urine Protein Negative (Negative) 05/13/18 11:59 Urine Glucose (UA) Negative (Negative) 05/13/18 11:59 Urine Ketones Negative (Negative) 05/13/18 11:59 Urine Blood Negative (Negative) 05/13/18 11:59 Urine Nitrite Negative (Negative) 05/13/18 11:59 Urine Bilirubin Negative (Negative) 05/13/18 11:59 Urine Urobilinogen Negative (Negative) 05/13/18 11:59 Ur Leukocyte Esterase Negative (Negative) 05/13/18 11:59 Blood Type A Positive 05/13/18 11:59 Antibody Screen NEGATIVE 05/13/18 11:59 Diagnostic Findings XR knee RT 2V routine HISTORY: 58 years-old Female Surgical Post Op right knee total joint arthroplasty. History of degenerative joint disease COMPARISON: None available TECHNIQUE: 2 views of the right knee FINDINGS: Right knee total joint arthroplasty with patellar resurfacing. Alignment is satisfactory without acute fracture or retained foreign body. Expected postsurgical soft tissue swelling with deep tissue air. Surgical drainage catheter noted. IMPRESSION: Right knee total joint arthroplasty and patella resurfacing with satisfactory alignment.
--- NOTE | 2018-06-09 08:17 | Anesthesiology Progress Note ---
Date of Service June 09, 2018 Anesthesia Post Procedure Vital Signs Vital Signs: Temp Pulse Pulse Pulse Resp BP Pulse Ox 06/09/18 04:05 36.6 C 76 14 147/81 H 97 06/08/18 23:13 36.7 C 71 14 138/79 96 06/08/18 20:00 36.8 C 86 20 120/79 92 06/08/18 15:34 36.7 C 84 18 125/86 99 06/08/18 13:16 90 18 148/87 H 100 06/08/18 12:30 90 18 130/79 100 06/08/18 10:57 102 H 18 134/79 100 06/08/18 10:15 36.6 C 104 H 16 133/78 100 06/08/18 10:00 88 12 134/77 100 06/08/18 09:45 36.5 C 90 12 132/73 100 06/08/18 09:35 36.5 C 90 10 L 139/79 100 06/08/18 09:25 95 H 11 L 137/77 100 06/08/18 09:15 90 11 L 126/69 100 06/08/18 09:05 99 H 13 117/68 100 06/08/18 08:57 36.5 C 112 H 17 117/65 100 Pain Intensity Right Knee: Pain Intensity: 2 Notes Mental Status: alert / awake / arousable and participated in evaluation Patient Amnestic to Procedure: Yes Nausea / Vomiting: adequately controlled Pain: adequately controlled Airway Patency, RR, SpO2: stable & adequate BP & HR: stable & adequate Hydration State: stable & adequate Neuraxial Anesthesia: was administered and sensory block resolved Anesthetic Complications: no major complications apparent
[2018-06-09] MEDS: DOCUSATE SODIUM 100 MG CAP PO SCH ×2 (08:40→21:24)
[2018-06-09] MEDS: ASPIRIN 81 MG ECTAB PO SCH ×2 (08:41→21:24)
[2018-06-09] MEDS: OXYCODONE HCL IR 5 MG TAB (IMMEDIATE RELEASE) PO PRN ×2 (08:42→13:13)
[2018-06-09] MEDS: FLINTSTONES COMPLETE CHEWABLE TAB PO SCH (10:20)
[2018-06-09] MEDS: CeleBREX 200 MG CAP PO SCH (21:23)
[2018-06-09] MEDS: SENNA 8.6 MG TAB PO SCH (21:23)
[2018-06-10] MEDS: OXYCODONE HCL IR 5 MG TAB (IMMEDIATE RELEASE) PO PRN ×3 (00:07→13:29)
[2018-06-10] MEDS: ACETAMINOPHEN 500 MG TAB PO SCH ×2 (05:21→09:17)
--- NOTE | 2018-06-10 06:51 | Orthopedic Progress Note ---
Date of Service June 10, 2018 Assessment & Plan (1) Status post total right knee replacement: POD #2 s/p Right TKA pt/ot dvt proph with [facility]/SCD/ASA plan for d/c home later today with HHPT with [facility] will d/c on ASA but not Celebrex due to h/o gastric bypass Subjective POD #2 s/p Right TKA denies CP/SOB, denies Fever/Chills, pain currently /10 did well in PT yesterday but a little sore today Musculoskeletal: as per Subjective / HPI Physical Exam Vital Signs (Past 24 Hours): Last Vital Signs Temp 36.9 C 06/09/18 23:53 Pulse 82 06/09/18 23:53 Resp 16 06/09/18 23:53 BP 153/82 H 06/09/18 23:53 Pulse Ox 96 06/09/18 23:53 Constitutional: WD/WN, vitals as above Musculoskeletal: Right Knee: NVDI, calf SNT, negative wicho sign. DP palpable, able to wiggle toes/ankle movement without difficulty. ANETA dressing clean dry and intact. expected post-operative bruising noted. moderate swelling to the right knee
--- NOTE | 2018-06-10 07:07 | Discharge Summary ---
Date of Service Date of Discharge: June 10, 2018 date of admission: 06/08/18 Admission HPI Per Admitting Provider Ms Schultz is a 57 year old female who is here for a follow up of right knee pain, presents for pre-op evaluation prior to Right Total knee replacement. She presents with pain and swelling on the right side. Patient states that she has been using Pennsaid without any results. The symptoms occur intermittently. currently the patient states that the symptoms are moderate-severe. The pain is described as aching and sometimes sharp. The symptoms occur intermittently. The patient is experiencing pain in the following location: anterior aspect on the right side. She rates her current pain as 4/10, worst is 7/10. The symptoms are aggravated by daily activities and repetitive activities, walking and stairs. Daxa states that the symptoms are relieved by no specific activity. The patient has had a previous MRI. Pt. has used topical Pennsiad. Due to Gastic Bypass she is limited on oral NSAID's. Patient states that she is unable to take the prescribed Meloxicam due to having gastric bypass surgery. Principal Diagnosis right knee osteoarthritis Discharge Exam Constitutional WD/WN, vitals as above no acute distress Musculoskeletal right knee: NVDI, calf SNT, negative wicho sign. DP palpable, able to wiggle toes/ankle movement without difficulty. ANETA dressing clean dry and intact. expected post-operative bruising noted. Discharge Data Allergies Allergy/AdvReac Type Severity Reaction Status Date / Time morphine Allergy Mild SICK TO Verified 06/08/18 05:36 STOMACH BEETS Allergy Mild Rash Uncoded 05/06/18 10:58 CODEINE (Generic Allergy) Allergy Mild SICK TO Uncoded 05/06/18 10:58 STOMACH Consultations 06/08/18 10:33 Consult Case Management - Discharge Planning Routine Procedures Performed Operation Date: 06/08/18 07:00 Actual Procedures p Right Total Knee Arthroplasty(Right) - Daniel Blackburn, Ordered Studies 06/08/18 05:00 US - OR guided needle placement Routine 06/08/18 06:44 US - OR guided needle placemen Routine Hospital Course (1) Status post total right knee replacement: POD #2 s/p Right TKA pt/ot dvt proph with SARKIS/SCD/ASA plan for d/c home later today with HHPT with [facility] will d/c on ASA but not Celebrex due to h/o gastric bypass Patient was a same day admission after undergoing a successful Right TKA. She tolerated the procedure well. Post-operatively, she activity was progressed and well tolerated. Please refer to daily progress notes and PT notes for complete d etails. After exam on 06/10/18, patient felt to be stable for discharge home with HHPT. Patient will f/u in the office in 2 weeks for further evaluation including x-rays and incision check, sooner if having any issues or concerns. Below are pertinent labs/studies during their hospital stay: Laboratory Results WBC 6.56 K/uL (4.8-10.8) 06/09/18 05:15 RBC 3.55 M/uL (4.2-5.4) L 06/09/18 05:15 Hgb 10.3 g/dL (12.0-16.0) L 06/09/18 05:15 Hct 30.8 % (37-47) L 06/09/18 05:15 MCV 86.8 fL (80-100) 06/09/18 05:15 MCH 29.0 pg (25-34) 06/09/18 05:15 MCHC 33.4 g/dL (32-36) 06/09/18 05:15 RDW Std Deviation 44.7 fL (36.4-46.3) 06/09/18 05:15 RDW Coeff of Brent 14.1 % (11.5-14.5) 06/09/18 05:15 Plt Count 251 K/uL (130-400) 06/09/18 05:15 MPV 8.8 fL (7.4-10.4) 06/09/18 05:15 Immature Gran % (Auto) 0.0 % 05/13/18 11:59 Neut % (Auto) 53.1 % 05/13/18 11:59 Lymph % (Auto) 38.3 % 05/13/18 11:59 Bowie % (Auto) 7.8 % 05/13/18 11:59 Eos % (Auto) 0.6 % 05/13/18 11:59 Baso % (Auto) 0.2 % 05/13/18 11:59 Immature Gran # (Auto) 0.00 K/uL (0.00-0.02) 05/13/18 11:59 Neut # (Auto) 2.51 K/uL (1.4-6.5) 05/13/18 11:59 Lymph # (Auto) 1.81 K/uL (1.2-3.4) 05/13/18 11:59 Bowie # (Auto) 0.37 K/uL (0.11-0.59) 05/13/18 11:59 Eos # (Auto) 0.03 K/uL (0-0.5) 05/13/18 11:59 Baso # (Auto) 0.01 K/uL (0-0.2) 05/13/18 11:59 PT 9.8 Seconds (9.0-12.0) 05/13/18 11:59 INR 1.0 (0.9-1.1) 05/13/18 11:59 APTT 26.5 Seconds (21.0-31.0) 05/13/18 11:59 PTT Ratio 1.0 05/13/18 11:59 Sodium 143 mmol/L (136-145) 06/09/18 05:15 Potassium 3.6 mmol/L (3.5-5.1) 06/09/18 05:15 Chloride 113 mmol/L (98-107) H 06/09/18 05:15 Carbon Dioxide 25 mmol/L (21-32) 06/09/18 05:15 Anion Gap 5.0 (3-11) 06/09/18 05:15 BUN 9 mg/dl (7-18) 06/09/18 05:15 Creatinine 0.68 mg/dl (0.6-1.2) 06/09/18 05:15 Est Cr Clr Drug Dosing 91.8 ml/min 06/09/18 05:15 Est GFR ( Amer) 110.2 06/09/18 05:15 Est GFR (Non-Af Amer) 95.1 06/09/18 05:15 BUN/Creatinine Ratio 13.8 (10-20) 06/09/18 05:15 Glucose 112 mg/dl (70-99) H 06/09/18 05:15 Estimat Average Glucose 120 mg/dl 05/13/18 11:59 Hemoglobin A1c 5.8 % (4.5-5.6) H 05/13/18 11:59 Calcium 8.2 mg/dl (8.5-10.1) L 06/09/18 05:15 Albumin 3.5 gm/dl (3.4-5.0) 05/13/18 11:59 Urine Color Yellow 05/13/18 11:59 Urine Appearance Clear (Clear) 05/13/18 11:59 Urine pH 7.5 (4.5-7.5) 05/13/18 11:59 Ur Specific [place] 1.009 (1.000-1.030) 05/13/18 11:59 Urine Protein Negative (Negative) 05/13/18 11:59 Urine Glucose (UA) Negative (Negative) 05/13/18 11:59 Urine Ketones Negative (Negative) 05/13/18 11:59 Urine Blood Negative (Negative) 05/13/18 11:59 Urine Nitrite Negative (Negative) 05/13/18 11:59 Urine Bilirubin Negative (Negative) 05/13/18 11:59 Urine Urobilinogen Negative (Negative) 05/13/18 11:59 Ur Leukocyte Esterase Negative (Negative) 05/13/18 11:59 Hepatitis C Ab Screen Neg (Neg) 06/09/18 05:15 Blood Type A Positive 05/13/18 11:59 Antibody Screen NEGATIVE 05/13/18 11:59 Total Time Total Time Spent Total Time Spent (In Minutes): 20 Total Time Includes: Examination of the Patient, Discharge Planning and Medication Reconciliation Discharge Plan Discharge Items Patient Disposition: Home - Home Health Services Reason For Visit: Right Knee Osteoarthritis Discharge Diagnosis: Right total knee replacement Condition: Good Discharge Goals: Decrease discomfort, Improve function and Increase independence Activity: Per 'Additional Instructions' section Lifting: Wait until after follow-up appointment Driving/Machine Use Comment: no driving until cleared by your surgeon Weightbearing: Right weightbearing Weightbearing Comment: WBAT with walker Non-emergency contact: Primary Care Provider and Surgeon Call non-emergency contact if: you have any medication questions, your temperature is above 101, your wound has increased redness, your wound has increased drainage and your wound pain has increased Follow-up/Referrals: Rosanna Santos MD [Primary Care Provider] - Diet: Regular Addtl Provider Instructions: ACTIVITY RECOMMENDATIONS: SELF CARE INSTRUCTIONS AFTER TOTAL KNEE REPLACEMENT A. You may need to continue a physical therapy program after discharge from the hospital. There are several options available to you. Your doctor will assist you in selecting the best one for you. 1. An out-patient facility 2 to 3 times a week for therapy or home therapy. 2. Continue working on all exercises taught to you in the hospital. Your goals should be to increase bending of your knee to 90 degrees and beyond and to fully straighten your knee. B. You may progress at your own pace from walking with a walker or crutches to a cane; then to no assistive devices. C. Make walking a part of your daily routine. Be up as much as comfortable with rest periods throughout the day. Rest with leg elevation is very important. Use the ice wrap frequently for the first 3-4 weeks. D. There are no restrictions on activities. You may ride in a car, shop, participate in fisher seal and all social activities. E. Wear the long elastic stockings (SARKIS hose) 20 hours a day for 2 weeks after surgery. They can be removed several times a day for laundering and for a bath. F. You may shower, no tub baths until cleared by your doctor. SPECIAL CARE INSTRUCTIONS: VERY IMPORTANT TO READ AND REVIEW A. There are a few signs you need to watch for after you are home. Call [facility] if you notice any of the followin. Increased severe knee pain. Some pain is expected especially when you exercise. 2. Increased swelling in your leg or knee; pain or swelling of the calf muscle in either lower leg. 3. Any fluid drainage from the incision. 4. Shortness of breath or chest pain. B. Please call [facility] at if you have any concerns or questions about your operation or recovery. The doctor or his nurse will return your call promptly. C. You must take antibiotics before dental work, bladder, bowel or other surgery. Your doctor will provide you with a permanent care to carry describing this precaution. IMPORTANT: * REMEMBER TO TAKE ASPIRIN, 81 MG, TWICE DAILY FOR 4 WEEKS UNLESS OTHERWISE DIRECTED. THIS IS YOUR BLOOD THINNER. * HIGH RISK PATIENTS MAY BE PRESCRIBED A STRONGER BLOOD THINNER. THIS WILL BE PROVIDED AT DISCHARGE. * CALL IF INCREASED PAIN, REDNESS, DRAINAGE OR FEVER GREATER THAT 101. * WEAR SARKIS HOSE 20 HOURS PER DAY FOR 2 WEEKS. * ANETA Dressing- This is a large suction dressing covering your incision. This will help pull any excess drainage from the wound and allow your incision to heal properly. You may shower with this if you can keep the unit outside of the shower. If any bleeding or leakage is noted please call your doctor's office. This will remain on your incision for 7 days and then should be removed. This can be done yourself or by the home nursing staff if applicable. The entire unit is disposable once removed. Once removed, keep incision clean and dry. If redness or drainage is noted, please call your surgeon. ONCE ANETA IS REMOVED, FOLLOW THESE INSTRUCTIONS: *DERMABOND Prineo- This is a mesh tape dressing that is covered with glue. It should remain in place until the incision is properly healed, usually 10-14 days. This dressing is designed to naturally slough off. You may trim the excess mesh tape as it peels off. Incision may be briefly wet in a shower. Dry immediately by blotting with a clean, dry towel. Do not bath or swim until instructed by your doctor. Do not scratch, rub, or pick at the dressing. Do not apply any topical ointments or lotions until dressing is completely removed and/or instructed by your doctor. There may be a small piece of suture material at one end of your incision. Do not pull or trim this. If it is bothersome or catching on clothing, you may cover it with a band-aid. IF INCISION IS LEAKING THROUGH DRESSING, CALL THE OFFICE . FOLLOW UP VISIT: If appointment is not already scheduled: Please call [facility] to make a follow-up appointment for 2 weeks after your surgery at . Prescriptions: New aspirin [Ecotrin Low Strength] 81 mg Tablet,Delayed Release (Dr/Ec) 81 mg PO BID 30 Days Qty: 60 RF: 0 acetaminophen [Pain Reliever] 500 mg Tablet 1,000 mg PO Q8 14 Days Qty: 84 RF: 0 oxycodone 5 mg Tablet 5 - 10 mg PO Q6 PRN (Reason: pain) Qty: 30 RF: 0 docusate sodium 100 mg Capsule 100 mg PO BID 10 Days Qty: 20 RF: 0 cefadroxil 500 mg capsule 500 mg PO BID 10 Days Qty: 20 RF: 0 ondansetron HCl [Zofran] 8 mg tablet 8 mg PO Q8H PRN (Reason: nausea and vomiting) Qty: 20 RF: 0 Continued Flintstones Complete (iron) Tablet,Chewable 2 tab PO DAILY RF: 0 ranitidine HCl 150 mg Tablet 150 mg PO DAILY PRN (Reason: Indigestion) RF: 0 Humira Pen 40 mg/0.8 mL Pen Injector Kit 1 dose SUBCUT UD RF: 0 Caltrate + D3 Plus Minerals 300 mg-800 unit -25 mg-0.5 mg Tablet 1 tab PO DAILY RF: 0 Stand-Alone Forms: [facility] Discharge Orders: Discharge Order (Routine); Ordered 06/10/18 Ordered By: Jorge Luis Wu Admission Data Admit Date/Time: 06/08/18 09:02 Attending Provider: Daniel Blackburn Admit Provider: Daniel Blackburn Primary Care Provider: Rosanna Santos Service: Surgical Services Other Pending Studies at Discharge: No
[2018-06-10] MEDS: CeleBREX 200 MG CAP PO SCH (08:40)
[2018-06-10] MEDS: DOCUSATE SODIUM 100 MG CAP PO SCH (08:57)
[2018-06-10] MEDS: FLINTSTONES COMPLETE CHEWABLE TAB PO SCH (08:57)
[2018-06-10] MEDS: ASPIRIN 81 MG ECTAB PO SCH (08:57)
== END 2018-06-10 14:49 | disposition home health service (06) | DRG 470 ==
LOC: ASU 05:01 → 3E 09:02